=== PATIENT | male | born 1960 | race Caucasian/White ===

== ENCOUNTER 2020-09-14 18:32 | Emergency (ER) | payer BC, OTHER | END 2020-09-14 19:29 | disposition home or self-care (01) | LOC: JVIRT 18:32 | DX: R05 Cough (principal); Z11.52 Encounter for screening for COVID-19 | CPT/HCPCS: C9803; G2251-GT; U0003 ==

== ENCOUNTER 2020-09-16 12:33 | Emergency (ER) | payer BC, OTHER ==
[2020-09-16 12:40] VITALS: BMI 26.4
[2020-09-16 13:35] LABS: BASO % 0.8 % (0-2.0); EOS % 1.1 % (0-4.5); HEMATOCRIT 42.4 % (35.4-49); HEMOGLOBIN 14.4 GM/dL (11.7-16.9); LYMPH % 22.8 % (8-40); MCH 31.4 pg (25.7-33.7); MEAN CELL VOLUME 92.2 fl (80-96); MEAN PLT VOLUME 8.2 fl (7.5-11.1); MONO % 6.7 % (3.8-10.2); NEUT % 68.6 % (42.8-82.8); PLATELET COUNT 171 K/MM3 (134-434); RDW 13.7 % (11.9-15.9); WHITE BLOOD COUNT 4.6 K/mm3 (4.0-10.0)
[2020-09-16] MEDS ORDERED: BAMLANIVIMAB 700 MG in SODIUM CHLORIDE 250 ML IVPB ONE (13:45)
[2020-09-16 13:53] LABS: POTASSIUM 4.6 mmol/L (3.5-5.1)
[2020-09-16 13:55] LABS: ALBUMIN 3.7 g/dl (3.4-5.0); BLOOD UREA NITROGEN 13.7 mg/dL (7-18); CALCIUM 9.1 mg/dL (8.5-10.1)
[2020-09-16 13:58] LABS: CREATININE 1.2 mg/dL (0.55-1.3)
[2020-09-16 14:00] LABS: BILIRUBIN,TOTAL 0.5 mg/dL (0.2-1); TOT PROT 7.3 g/dl (6.4-8.2)
[2020-09-16 15:56] VITALS: TEMP 98
[2020-09-16 17:04] VITALS: BP 127/77; PULSE 78
== END 2020-09-16 17:05 | disposition home or self-care (01) ==
LOC: JER 12:33
DX: U07.1 COVID-19 (principal)
CPT/HCPCS: 36415; 80053; 85025; 99284-25; M0239; Q0239

== ENCOUNTER 2021-03-25 04:44 | Day surgery (SDC) | payer BC, OTHER ==
[2021-03-22 10:05] VITALS: BMI 20.3
[2021-03-25 08:36] VITALS: TEMP 97.8
[2021-03-25 09:38] VITALS: BP 117/75; PULSE 57
== END 2021-03-25 09:20 | disposition home or self-care (01) ==
LOC: JASU-ENDO 04:44
PROVIDERS: ATTEND Internal Medicine Gastroenterology
PROC: 0DBP8ZX Excision of Rectum, Via Natural or Artificial Opening Endoscopic, Diagnostic (ICD-10-PCS; principal; 2021-03-25 08:00)
DX: Z12.11 Encounter for screening for malignant neoplasm of colon (principal); K62.1 Rectal polyp; K64.8 Other hemorrhoids; Z83.71 Family history of colonic polyps
CPT/HCPCS: 88305-TC